=== PATIENT | female | born 1990 | race Caucasian/White ===

== ENCOUNTER 2024-12-10 20:21 | Emergency (ER) | payer MEDICAID, SELFPAY ==
[2024-12-10 20:21] VITALS: BMI 33.3
--- NOTE | 2024-12-10 20:28 | PD.EDCHEST ---
ED Chest Pain RME/HPI General Chief Complaint: Chest Pain Stated Complaint: FEVER, CHEST PAIN Time Seen by Provider: 12/10/24 20:25 Arrival date/time: 12/10/24 20:21 RME / HPI RME / HPI narrative: This section includes all my notes and documentations, including HPI, PE, and ED course. Timmy Taylor MD HPI: 34yo female here with several days of worsening cough, productive cough, purulent sputum, and dyspnea. With subjective fever and chills and bodyaches and malaise. And chest pain with coughing. No other complaints. ROS: All negative except as documented in HPI. Physical Exam: General: Alert and oriented. Hacking cough noted. Eyes: Conjunctivae and lids clear. ENT: No nasal congestion. Pharynx normal. TM normal bilaterally. Neck: Supple. Heart: RRR. Lungs: No respiratory distress. Decreased air movement. Diffuse rhonchi. Abdomen: Soft and nontender. Legs: No clubbing, cyanosis, edema. Skin: Warm and dry. Neuro: Alert and oriented X 3. I reviewed all diagnostic test results. My interpretation of the chest x-ray is no acute findings, official radiology reading is pending. COVID-negative. Positive influenza. At this point, diagnoses include Influenza. Treatment here included Tamiflu, Tylenol with Codeine, Duoneb, Ibuprofen, and Prednisone. Significant improvement noted. Recommended trial of outpatient treatment. Based on my best medical judgment, made decision no further evaluation or treatment indicated at this time. Patient understands and agrees to the discharge instructions customized and printed, see below. Discharge instructions from Dr. Taylor: --No physical exertion for 3 days to help rest your lungs. --No smoking and no exposure to smoking or pets or dust or cold air. --Tamiflu to kill the influenza germs. --Prednisone to help decrease inflammation of the lungs. --Ibuprofen 800 mg every 8 hours today and tomorrow. Then as needed for fever or pain. --Tylenol with codeine for severe cough or pain. --Benadryl as needed for cough or congestion. --Albuterol 2 puffs every 4-6 hours for 3 days scheduled. Then as needed (and in between) for cough or shortness or breath. ?Increase oral fluid. We need extra fluid when we are sick. --See a private doctor next week if not better. --Seek immediate medical care with significant worsening or with any concerns. Timmy Taylor MD Related Data Previous Rx's ?Medication ?Instructions ?Recorded albuterol sulfate 90 mcg/actuation 2 puff inhalation Q6H PRN 07/16/21 aerosol inhaler shortness of breath or wheezing #18 grams oxycodone-acetaminophen 5 mg-325 1 tab PO Q6H PRN pain #10 tabs 03/09/22 mg tablet (Percocet) bacitracin 500 unit/gram topical 1 applic topical TID 7 days #28.4 04/04/22 ointment grams ibuprofen 800 mg tablet 800 mg PO TID PRN pain #30 tabs 04/04/22 hydrocodone 5 mg-acetaminophen 325 1 tab PO TID #15 tabs 11/18/22 mg tablet cephalexin 500 mg capsule 500 mg PO QID #28 caps 06/14/23 acetaminophen 300 mg-codeine 30 mg 2 tab PO TID PRN pain #20 tabs 12/10/24 tablet albuterol sulfate 90 mcg/actuation 2 inh inhalation QID PRN shortness 12/10/24 aerosol inhaler of breath or wheezing #8.5 grams ibuprofen 800 mg tablet 800 mg PO Q8H PRN pain #30 tabs 12/10/24 oseltamivir 75 mg capsule (Tamiflu) 75 mg PO BID 5 days #10 caps 12/10/24 prednisone 50 mg tablet 50 mg PO QDAY #5 tabs 12/10/24 Allergies Allergy/AdvReac Type Severity Reaction Status Date / Time lactose AdvReac Severe NAUSEA Verified 03/09/22 10:06 Review of Systems Review of Systems Systems Reviewed: All systems reviewed, normal except as documented Past Medical History Past Medical History NEUROLOGIC: Negative Seizures CARDIAC: Positive Cardiac Disorders and Hypertension; Negative Congestive Heart Failure RESPIRATORY: Positive Asthma; Negative Chronic Obstructive Pulmonary Disease (COPD) GENITOURINARY: Negative Renal Disease ENDOCRINE: Negative Diabetes Mellitus Type 1 or Diabetes Mellitus Type 2 HEMATOLOGIC: Negative Sickle Cell Disease PSYCHO/SOCIAL: Positive Recreational Drug Use, Depression and Anxiety OTHER HISTORY: Negative Blood Transfusions, Blood Transfusion Reaction or Anesthesia Reactions Family History FAMILY HISTORY: Positive Family Cardiac Disorders and Family Cancer Surgical History SURGICAL: Positive Section Social History SMOKING STATUS: Current every day smoker ED Exam Narrative Physical exam: As noted in HPI. Course Course Course Narrative: CXR is ordered for determining the etiology of cough. Quality Measures none Orders Category Date Time Status Bedside COVID-19 Antigen Test NOW Care 12/10/24 20:29 Active Bedside Influenza A&B Antigen Test NOW Care 12/10/24 20:29 Completed XR chest 1V portable Stat Exams 12/10/24 20:30 Taken ACETAMINOPHEN w/COD 300-30 [Tylenol w/Cod #3] Med 12/10/24 20:28 Discontinued 2 tab PO X1 ONE Albuterol/Ipratr Rt Sayra [Duoneb Rt Sayra] Med 12/10/24 20:28 Discontinued 3 ml INH X1 ONE Ibuprofen Tab [Motrin Tab] Med 12/10/24 20:28 Discontinued 800 mg PO X1 ONE Oseltamivir [Tamiflu] Med 12/10/24 21:17 Discontinued 75 mg PO X1 ONE predniSONE Med 12/10/24 20:28 Discontinued 80 mg PO X1 ONE Vital Signs Vital signs: Vital Signs Temperature 103.1 F H 12/10/24 21:01 Pulse Rate 116 H 12/10/24 21:01 Respiratory Rate 20 12/10/24 21:01 Blood Pressure 147/83 H 12/10/24 21:01 Pulse Oximetry (%) 100 12/10/24 21:01 Oxygen Delivery Method Room Air 12/10/24 21:01 Chest Pain MDM Narrative MDM Narrative:: Scribe Attestation: 12/10/24 Donna Rider am scribing for and in the presence of Dr. Taylor. Patient data External records reviewed:: [facility] previous records (Per chart review, patient was seen here on 06/14/23 for amphetamine abuse.) Clinical information provided by:: patient Social determinants that could affect healthcare access:: none Patient has the following chronic illnesses:: HTN How is presenting disease/condition affected by chronic disease/condition?: uneffected by Evaluation data The following diagnostics were reviewed and interpreted by me:: lab results and radiology exam(s) Lab and/or radiology exams considered but not ordered:: none Interpretation Summary: Influenza B Medications / Prescriptions Medications or Prescriptions considered but not ordered:: none Medication administrations:: Medication Administration History Discontinued Medications Acetaminophen/Codeine Phosphate (Acetaminophen W/Cod 300-30 Tablet) 2 tab PO X1 ONE Stop: 12/10/24 20:29 Last Admin: 12/10/24 21:12 Dose: 2 tab Documented By: Albuterol/Ipratropium (Albuterol/Ipratropium (Duoneb) Rt Sayra 3 Ml Nebu) 3 ml INH X1 ONE Stop: 12/10/24 20:29 Last Admin: 12/10/24 20:59 Dose: 3 ml Documented By: MM Ibuprofen (Ibuprofen Tab 400 Mg Tablet) 800 mg PO X1 ONE Stop: 12/10/24 20:29 Last Admin: 12/10/24 21:13 Dose: 800 mg Documented By: Oseltamivir Phosphate (Oseltamivir 75 Mg Capsule) 75 mg PO X1 ONE Stop: 12/10/24 21:18 Prednisone (Prednisone 20 Mg Tablet) 80 mg PO X1 ONE Stop: 12/10/24 20:29 Last Admin: 12/10/24 21:10 Dose: 80 mg Documented By: Tylenol with Codeine, Duoneb, Ibuprofen, Prednisone, Tamiflu Consultations Consultation(s) initiated? (list below): No Diagnosis Chest Pain Differential Diagnosis: pneumothorax and other (COVID/influenza/pneumonia/bronchitis) Most likely diagnosis given after review of the tests above:: Influenza Admission Indicated Admission indicated?: not indicated Explain why admission is indicated or not indicated:: No criteria for admission. Admission Request Was there a request for admission?: No Disposition Plan Disposition Plan: Discharge Discharge Attestation Discharge Attestation: The patient and all family members were given an opportunity to ask questions and understood the discharge instructions. Discharge instructions specifically effects, indications for sooner follow up or return to the emergency department, and the expected course of current diagnosis. Patient condition: Stable Discharge Plan Plan Patient Disposition: HOME (Self Care) Prescriptions/Referrals Prescriptions/Med Rec: New ibuprofen 800 mg tablet 800 mg PO Q8H PRN (Reason: pain) Qty: 30 0RF acetaminophen-codeine 300-30 mg tablet 2 tab PO TID MDD 6 PRN (Reason: pain) Qty: 20 0RF oseltamivir [Tamiflu] 75 mg capsule 75 mg PO BID 5 Days Qty: 10 0RF prednisone 50 mg tablet 50 mg PO QDAY Qty: 5 0RF albuterol sulfate 90 mcg/actuation HFA aerosol inhaler 2 inh inhalation QID PRN (Reason: shortness of breath or wheezing) Qty: 8.5 0RF No Action ibuprofen 800 mg tablet 800 mg PO TID PRN (Reason: pain) Qty: 30 0RF bacitracin 500 unit/gram ointment 1 applic topical TID 7 Days Qty: 28.4 1RF albuterol sulfate 90 mcg/actuation HFA aerosol inhaler 2 puff inhalation Q6H PRN (Reason: shortness of breath or wheezing) Qty: 18 0RF oxycodone-acetaminophen [Percocet] 5-325 mg tablet 1 tab PO Q6H MDD 6 tabs PRN (Reason: pain) Qty: 10 0RF hydrocodone-acetaminophen 5-325 mg tablet 1 tab PO TID MDD 3 Qty: 15 0RF cephalexin 500 mg capsule 500 mg PO QID Qty: 28 0RF Problem List Clinical Impression: Influenza Patient/Caregiver Discharge Instructions Discharge Activity: activity as tolerated Education Materials: ED Influenza (Adult) Additional Instructions: Discharge instructions from Dr. Taylor: --No physical exertion for 3 days to help rest your lungs. --No smoking and no exposure to smoking or pets or dust or cold air. --Tamiflu to kill the influenza germs. --Prednisone to help decrease inflammation of the lungs. --Ibuprofen 800 mg every 8 hours today and tomorrow.? Then as needed for fever or pain. --Tylenol with codeine for severe cough or pain.? --Benadryl as needed for cough or congestion.? --Albuterol 2 puffs every 4-6 hours for 3 days scheduled.? Then as needed (and in between) for cough or shortness or breath.?? ?Increase oral fluid.? We need extra fluid when we are sick.?? --See a private doctor next week if not better. --Seek immediate medical care with significant worsening or with any concerns. Print Language: Bangladeshi Stand Alone Forms: Heather Award Info., Patient Portal Info Letter
--- NOTE | 2024-12-10 20:30 | XR_ITS ---
Examination: AP upright chest single view Technique: Portable AP upright chest single view December 10, [id number] hrs. Indications: Shortness of breath today. Findings: Opacity in the right middle lobe and left base consistent with pneumonia Normal heart size Osseous structures intact Impression: Pneumonia as above
[2024-12-10] MEDS: ALBUTEROL/IPRATROPIUM (Duoneb) RT SOL 3 ML NEBU INH (20:59)
[2024-12-10 21:01] VITALS: BP 147/83; PULSE 106; PULSE 116; RESP 20; TEMP 39.5; O2SAT 100; O2SAT 94
[2024-12-10] MEDS: predniSONE 20 MG TABLET 80 MG PO (21:10)
[2024-12-10] MEDS: ACETAMINOPHEN w/COD 300-30 TABLET 2 TAB PO (21:12)
[2024-12-10 21:13] VITALS: TEMP 39.6
[2024-12-10] MEDS: IBUPROFEN TAB 400 MG TABLET 800 MG PO (21:13)
[2024-12-10] MEDS: OSELTAMIVIR 75 MG CAPSULE PO (21:31)
== END 2024-12-10 22:20 | disposition home or self-care (01) ==
LOC: SERX 21:57
PROVIDERS: Emergency Provider Emergency Medicine; PCP Family Medicine
DX: J10.1 Influenza due to other identified influenza virus with other respiratory manifestations (principal); F17.210 Nicotine dependence, cigarettes, uncomplicated
CPT/HCPCS: 71045; 87400; 87811; 94640; 99283; A9270; J7512

== ENCOUNTER 2025-08-21 03:45 | Emergency (ER) | payer MEDICAID, SELFPAY ==
[2025-08-21 03:46] VITALS: BMI 29.9
[2025-08-21 03:53] VITALS: BP 133/83; PULSE 91; RESP 19; TEMP 36.4; O2SAT 100
--- NOTE | 2025-08-21 03:59 | PD.EDRME ---
Rapid Medical Screening Exam RME Arrival date/time: 08/21/25 03:45 This is a case of 35-year-old female who came into the emergency room due to generalized abdominal pain with nausea and vomiting for 3 days persistence of the symptoms this patient decided to start consult here in the emergency room Chief Complaint: Nausea/Vomiting/Diarrhea Time Seen by Provider: 08/21/25 03:58 Vital signs: Vital Signs Temperature 97.6 F 08/21/25 03:53 Pulse Rate 91 08/21/25 03:53 Respiratory Rate 19 08/21/25 03:53 Blood Pressure 133/83 H 08/21/25 03:53 Pulse Oximetry (%) 100 08/21/25 03:53 Oxygen Delivery Method Room Air 08/21/25 03:53 Exam: Abdominal exam mild to moderate tenderness on the both upper abdomen no guarding no rebound no rigidity Clinical Impression: Abdominal pain
--- NOTE | 2025-08-21 04:06 | XR_ITS ---
Examination: CT abdomen and pelvis without contrast. Coronal 3-D reconstructions. Sagittal 2-D reconstructions. Date and time of exam: August 21, 2025, 0520 hours INDICATIONS: Abdominal pain beginning 2 weeks ago CTDI: vol (mGy): 8.32 DLP: (mGycm): 447 Technique: Axial images of the abdomen have been obtained, 3 mm slice thickness Intravenous contrast material has not been administered. Low dose protocols were performed. One or more of the following dose reduction techniques were used; automated exposure control, adjustment of the mA and/or KV according to patient size, use of iterative reconstruction technique. Findings: Hepatomegaly 17 cm splenomegaly 13 cm Absent gallbladder 10 mm right adrenal adenoma 3 mm left renal calculus 3 cm left renal cyst with thin calcification of the wall of the cyst, smaller right renal cyst Fluid distended small bowel and colonic loops Normal appendix No bowel obstruction Urinary bladder intact Osseous structures intact IMPRESSION: Hepatosplenomegaly Mild colitis enteritis Normal appendix
[2025-08-21 05:36] LABS: Basophils # (Auto) 0.1 Thou/mm3 (0.0-0.2); Basophils % (Auto) 1 % (0-2.5); Eosinophils # (Auto) 0.1 Thou/mm3 (0.0-0.5); Eosinophils % (Auto) 1 % (0-10); Hematocrit 46.0 % (36.0-46.0); Hemoglobin 15.2 g/dL (12.0-16.0); Immature Granulocytes Auto 0.02 Thou/mm3 (0.00-0.00); Lymphocytes # (Auto) 1.1 Thou/mm3 (1.0-4.8); Lymphocytes % (Auto) 10 % (10-50); Mean Corpuscular HGB Conc 33.0 g/dl (31.0-37.0); Mean Corpuscular Hemoglobin 30.0 pg (25.0-35.0); Mean Corpuscular Volume 91 fL (80-100); Monocytes # (Auto) 0.5 Thou/mm3 (0.0-0.8); Monocytes % (Auto) 5 % (0-12); Neutrophils # (Auto) 9.1 Thou/mm3 (1.8-7.7); Neutrophils % (Auto) 83 % (37-80); Nucleated Red Blood Cell # 0.00 Thou/mm3 (0.00-0.00); Nucleated Red Blood Cell % 0 /100 WBC (0); Platelet Count 265 Thou/mm3 (140-440); RDW Standard Deviation 41.9 fL (36.4-46.3); Red Blood Count 5.07 Miln/mm3 (4.00-5.20); White Blood Count 10.9 Thou/mm3 (3.6-11.0)
[2025-08-21 05:46] VITALS: BP 125/76; PULSE 64; RESP 12; TEMP 36.5; O2SAT 97
[2025-08-21 05:57] LABS: Alanine Aminotransferase 283 U/L (10-49); Albumin, Serum 5.2 gm/dL (3.5-5.0); Albumin/Globulin Ratio 2.3 (1.2-2.2); Alkaline Phosphatase 119 U/L (46-116); Anion Gap 10 (7-16); Aspartate Amino Transferase 384 U/L (0-34); BUN/Creatinine Ratio 18 Ratio (12-20); Bilirubin,Total 1.1 mg/dL (0.3-1.2); Blood Urea Nitrogen 14 mg/dL (9-23); Calcium 9.1 mg/dL (8.3-10.6); Calcium (Corrected) 9.1 mg/dL (8.5-10.1); Carbon Dioxide 27.5 mMol/L (20.0-31.0); Chloride 105 mMol/L (98-107); Creatinine (Component) 0.8 mg/dL (0.6-1.3); Estimated Creatinine Clearance 101.6 mL/min (>60); Globulin 2.3 gm/dL (2.3-3.5); Glucose 109 mg/dL (74-106); Lipase 36 U/L (12-53); Osmolality,Calculated 284 (275-295); Potassium 4.0 mMol/L (3.4-5.1); Sodium 142 mMol/L (136-145); Total Protein 7.5 gm/dL (5.7-8.2); eGFR > 60 See Note
--- NOTE | 2025-08-21 06:03 | PRELIM_ITS ---
CT scan of the abdomen and pelvis without intravenous contrast (axial sections with sagittal and coronal reformats) August 21, 2025 at 0527 hours Clinical History: Abdominal pain. Comparison: June 14, 2023 Findings: Bibasilar streaky atelectasis is present. Fatty infiltration of the liver is noted. The gallbladder is surgically absent. There is a 1.3 cm right adrenal adenoma. There are few renal cysts, the largest in the left kidney measuring 3 cm with fine calcification. The pancreas, spleen, right kidney are unremarkable on this noncontrast study. No evidence of bowel obstruction. The appendix is within normal limits (coronal images 67-84). Fluid-filled small and large bowel loops with air-fluid levels are seen in the colon. There are a few prominent mesenteric lymph nodes. The urinary bladder is unremarkable. The uterus and adnexa are unremarkable. There is no free fluid or free air. The osseous structures are unremarkable. Impression: Fluid-filled small and large bowel loops with air-fluid levels in the colon, in the appropriate clinical setting the possibility of enterocolitis cannot be excluded. Other findings as described above. Report Electronically Signed By: Jerry Dewey 08/21/2025 6:02:41 AM [EST]
--- NOTE | 2025-08-21 06:20 | EDNOTE_ITS ---
ED Abdominal Pain RME/HPI General Chief Complaint: Nausea/Vomiting/Diarrhea Stated complaint: VOMITING, BODY ACHES, DIZZINESS Time seen by provider: 08/21/25 03:58 Arrival date/time: 08/21/25 03:45 RME / HPI RME / HPI narrative: 08/21/25 03:45 This is a case of 35-year-old female who came into the emergency room due to generalized abdominal pain with nausea and vomiting for 3 days persistence of the symptoms this patient decided to start consult here in the emergency room DR. MACKENZIE MAIN ED EVALUATION: 35-year-old female presents to the Emergency Department for nausea and vomiting that began earlier today. She denies abdominal pain, diarrhea, fever, or chills. No known past medical history and no regular medications. No recent travel or sick contacts reported. Related Data Previous Rx's ?Medication ?Instructions ?Recorded albuterol sulfate 90 mcg/actuation 2 puff inhalation Q 6H PRN 07/16/21 aerosol inhaler shortness of breath or wheez ing #18 grams oxycodone-acetaminophen 5 mg-325 1 tab PO Q6H PRN pain #10 tabs 03/09/22 mg tablet (Percocet) bacitracin 500 unit/gram topical 1 applic topical TID 7 days #28.4 04/04/22 ointment grams ibuprofen 800 mg tablet 800 mg PO TID PRN pain #30 t abs 04/04/22 hydrocodone 5 mg-acetaminophen 325 1 tab PO TID #15 ta bs 11/18/22 mg tablet cephalexin 500 mg capsule 500 mg PO QID #28 caps 06/14 acetaminophen 300 mg-codeine 30 mg 2 tab PO TID PRN pa in #20 tabs 12/10/24 tablet albuterol sulfate 90 mcg/actuation 2 inh inhalation QI D PRN shortness 12/10/24 aerosol inhaler of breath or wheezing #8.5 g carmen ibuprofen 800 mg tablet 800 mg PO Q8H PRN pain #30 t abs 12/10/24 prednisone 50 mg tablet 50 mg PO QDAY #5 tabs Allergies Allergy/AdvReac Type Severity Reaction Status Date / Time lactose AdvReac Severe NAUSEA Verified 08/21/25 03:50 Review of Systems Review of Systems Systems Reviewed: All systems reviewed, normal except as documented Past Medical History Past Medical History CARDIAC: Positive Cardiac Disorders and Hypertension RESPIRATORY: Positive Asthma PSYCHO/SOCIAL: Positive Recreational Drug Use, Depression and Anxiety Family History FAMILY HISTORY: Positive Family Cardiac Disorders and Family Cancer Surgical History SURGICAL: Positive Section Social History SMOKING STATUS: Current every day smoker SUBSTANCE USE: does not use ALCOHOL: Never ED Exam Narrative Physical exam: GENERAL APPEARANCE: Alert and oriented x4, agitated and mildly diaphoretic, appears uncomfortable VITALS: All vitals were reviewed and the pulse ox is 95% on room air, which is normal according to my interpretation. HEENT: Normocephalic, atraumatic; pupils equal, round, reactive to light; EOMI; mucous membranes pink, moist; oropharynx clear NECK: Supple LUNGS: CTABL; no wheezes, no rales, no rhonchi HEART: Regular rate, regular rhythm; normal S1, S2; no murmurs ABDOMEN: non distended; normal BS; soft, no tenderness, no guarding, no rebound; no masses, no organomegaly, no hernia BACK: no CVA tenderness EXTREMITIES: atraumatic; no edema NEUROLOGIC: awake; alert and oriented x4; cranial nerves II-XII grossly intact; no focal sensory or motor deficits PSYCHIATRIC: Agitated affect; cooperative but restless SKIN: Mildly diaphoretic, warm, normal color; no rash Course Quality Measures none Orders Category Date Time Status Bedside COVID-19 Antigen Test NOW Care 08/21/25 09:[address] abdomen pelvis wo con Stat Exams 08/21/25 04:06 Completed US abdomen limited Stat Exams 08/21/25 06:33 Completed Alcohol, Blood Medical Stat Lab 08/21/25 04:33 Completed CBC Stat Lab 08/21/25 04:33 Completed Comprehensive Metabolic Panel Stat Lab 08/21/25 04:33 Completed Drug Screen,Urine Stat Lab 08/21/25 11:13 Completed HCG Qualitative,Urine Stat Lab 08/21/25 11:10 Completed Influenza A & B Rapid Panel Stat Lab 08/21/25 11:13 Completed Lipase Stat Lab 08/21/25 04:33 Completed Urinalysis Stat Lab 08/21/25 11:10 Completed Urine Culture Stat Lab 08/21/25 12:39 Ordered Ondansetron Inj [Zofran Inj] Med 08/21/25 08:34 Discontinued 4 mg IVP X1 ONE Sodium Chloride 0.9% 1000 ml [Ns] 1,000 ml Med 08/21/25 08:34 Discontinued IV 999 mls/hr Vital Signs Vital signs: Vital Signs Temperature 97.6 F 08/21/25 03:53 Pulse Rate 91 08/21/25 03:53 Respiratory Rate 19 08/21/25 03:53 Blood Pressure 133/83 H 08/21/25 03:53 Pulse Oximetry (%) 100 08/21/25 03:53 Oxygen Delivery Method Room Air 08/21/25 03:53 Abdominal Pain MDM MDM Narrative [facility] Narrative:: IJackie am scribing for and in the presence of Dr. Mackenzie. Patient data External records reviewed:: [facility] previous records Clinical information provided by:: patient Social determinants that could affect healthcare access:: other (specify) (current smoker) Patient has the following chronic illnesses:: Denies any PMHx or surgeries. How is presenting disease/condition affected by chronic disease/condition?: no chronic disease Evaluation data The following diagnostics were reviewed and interpreted by me:: lab results and radiology exam(s) Lab and/or radiology exams considered but not ordered:: none Interpretation Summary: Procedure(s): US abdomen limited Accession Number(s): [id number] cc: Asim Sheppard MD; Yvon Ugarte MD; Dominga Mackenzie MD~ Examination: Abdomen sonogram, Limited Date and time of exam: August 21, 2025, 0719 hours INDICATIONS: Elevated liver function test on laboratory examination today. Technique: Real-time steel scale transabdominal sonographic images of the upper abdomen obtained. Findings: Absent gallbladder. Normal common bile duct 0.5 cm. Pancreatic head 2.6 cm. Mild hepatomegaly 16.6 cm fatty infiltration. Normal hepatopetal portal venous flow. Patent IVC. IMPRESSION: Mild hepatomegaly with fatty infiltration Dictated By: Yvon Ugarte MD Procedure(s): CT abdomen pelvis wo con Accession Number(s): [id number] cc: Asim Sheppard MD; Yvon Ugarte MD; Tiffany Myrick~ Examination: CT abdomen and pelvis without contrast. Coronal 3-D reconstructions. Sagittal 2-D reconstructions. Date and time of exam: August 21, 2025, 0520 hours INDICATIONS: Abdominal pain beginning 2 weeks ago CTDI: vol (mGy): 8.32 DLP: (mGycm): 447 Technique: Axial images of the abdomen have been obtained, 3 mm slice thickness Intravenous contrast material has not been administered. Low dose protocols were performed. One or more of the following dose reduction techniques were used; automated exposure control, adjustment of the mA and/or KV according to patient size, use of iterative reconstruction technique. Findings: Hepatomegaly 17 cm splenomegaly 13 cm Absent gallbladder 10 mm right adrenal adenoma 3 mm left renal calculus 3 cm left renal cyst with thin calcification of the wall of the cyst, smaller right renal cyst Fluid distended small bowel and colonic loops Normal appendix No bowel obstruction Urinary bladder intact Osseous structures intact IMPRESSION: Hepatosplenomegaly Mild colitis enteritis Normal appendix Dictated By: Yvon Ugarte MD Medications / Prescriptions Medications or Prescriptions considered but not ordered:: none Medication administrations:: Medication Administration History Discontinued Medications Sodium Chloride (Ns) 1,000 mls @ 999 mls/hr IV .Q1H1M ONE Stop: 08/21/25 09:34 Last Infusion: 08/21/25 09:45 Dose: Infused Documented By: Admin: 08/21/25 08:44 Dose: 999 mls/hr Documented By: NAKIA Ondansetron HCl (Ondansetron Inj 2 Mg/Ml Inj 2 Ml) 4 mg IVP X1 ONE; Protocol Stop: 08/21/25 08:35 Last Admin: 08/21/25 08:47 Dose: 4 mg Documented By: NAKIA see above Consultations Consultation(s) initiated? (list below): No Diagnosis Differential diagnosis abdominal pain: other (Gastroenteritis, dehydration, and metabolic disturbance.) Most likely diagnosis given after review of the tests above:: Enteritis Vomiting Methamphetamine abuse Bacteriuria Admission Indicated Admission indicated?: not indicated Admission Request Was there a request for admission?: No Disposition Plan Disposition Plan: Discharge Discharge Attestation Discharge Attestation: The patient and all family members were given an opportunity to ask questions and understood the discharge instructions. Discharge instructions specifically effects, indications for sooner follow up or return to the emergency department, and the expected course of current diagnosis. Patient condition: Stable Discharge Plan Plan Patient Disposition: HOME (Self Care) Prescriptions/Referrals Prescriptions/Med Rec: No Action ibuprofen 800 mg tablet 800 mg PO TID PRN (Reason: pain) Qty: 30 0RF bacitracin 500 unit/gram ointment 1 applic topical TID 7 Days Qty: 28.4 1RF albuterol sulfate 90 mcg/actuation HFA aerosol inhaler 2 puff inhalation Q6H PRN (Reason: shortness of breath or wheezing) Qty: 18 0RF oxycodone-acetaminophen [Percocet] 5-325 mg tablet 1 tab PO Q6H MDD 6 tabs PRN (Reason: pain) Qty: 10 0RF hydrocodone-acetaminophen 5-325 mg tablet 1 tab PO TID MDD 3 Qty: 15 0RF ibuprofen 800 mg tablet 800 mg PO Q8H PRN (Reason: pain) Qty: 30 0RF acetaminophen-codeine 300-30 mg tablet 2 tab PO TID MDD 6 PRN (Reason: pain) Qty: 20 0RF prednisone 50 mg tablet 50 mg PO QDAY Qty: 5 0RF albuterol sulfate 90 mcg/actuation HFA aerosol inhaler 2 inh inhalation QID PRN (Reason: shortness of breath or wheezing) Qty: 8.5 0RF cephalexin 500 mg capsule 500 mg PO QID Qty: 28 0RF Referrals: Asim Sheppard MD [Primary Care Provider, Family Practice] - In 1 week Problem List Clinical Impression: Enteritis, Vomiting, Methamphetamine abuse, Bacteriuria Patient/Caregiver Discharge Instructions Education Materials: Understanding Methamphetamine ..., ED Gastroenteritis, Noninfectious Print Language: [place] Stand Alone Forms: Heather Award Info., Patient Portal Info Letter
--- NOTE | 2025-08-21 06:33 | XR_ITS ---
Examination: Abdomen sonogram, Limited Date and time of exam: August 21, 2025, 0719 hours INDICATIONS: Elevated liver function test on laboratory examination today. Technique: Real-time steel scale transabdominal sonographic images of the upper abdomen obtained. Findings: Absent gallbladder. Normal common bile duct 0.5 cm. Pancreatic head 2.6 cm. Mild hepatomegaly 16.6 cm fatty infiltration. Normal hepatopetal portal venous flow. Patent IVC. IMPRESSION: Mild hepatomegaly with fatty infiltration
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
[2025-08-21 08:00] VITALS: BP 123/80; PULSE 73; RESP 16; TEMP 36.6; O2SAT 98
[2025-08-21 08:05] LABS: Alcohol, Blood Medical < 3.0 mg/dL (0-10.0)
[2025-08-21] MEDS: SODIUM CHLORIDE 0.9% 1000 ML 1,000 ML 999 ML IV (08:44)
[2025-08-21] MEDS: ONDANSETRON INJ 2 MG/ML INJ 2 ML 4 MG IVP (08:47)
[2025-08-21 11:26] VITALS: BP 115/68; PULSE 72; RESP 16; TEMP 36.9; O2SAT 95
[2025-08-21 11:35] LABS: Collection Type, Urine Clean Catch
[2025-08-21 11:48] LABS: HCG Qualitative,Urine Negative
[2025-08-21 11:55] LABS: Bacteria,Urine 4+; Bilirubin,Urine Negative (Negative); Blood,Urine Trace (Negative); Color,Urine Yellow (Lt Yel-Yel); Glucose, Urine Negative (Negative); Ketones,Urine Negative (Negative); Leukocyte Esterase,Urine Negative (Negative); Nitrite,Urine Positive (Negative); PH,Urine 6.0 (5.0-7.0); Protein,Urine Trace (Neg - Trace); RBC,Urine 2 /hpf (0-3); Specific Gravity,Urine 1.032 (1.001-1.035); Squamous Epithelial Cell,Urine 1 /hpf (0-5); Urobilinogen,Urine Negative mg/dL (0.0-1.0); WBC,Urine 1 /hpf (0-5)
[2025-08-21 11:56] LABS: Clarity,Urine Hazy (Clear/Hazy)
[2025-08-21 12:14] LABS: Amphetamine/Methamp Scrn,U Positive (Negative); Barbiturate Screen,Urine Negative (Negative); Benzodiazepines Screen,Urine Negative (Negative); Benzoylecgonine Screen, Ur Negative (Negative); Fentanyl Screen,Urine Negative (Negative); Opiate Screen,Urine Negative (Negative); THC Screen,Urine Positive (Negative)
[2025-08-21 12:29] LABS: Influenza A Ag Negative; Influenza B Ag Negative
--- NOTE | 2025-08-21 12:38 | PC.NURSE ---
sandwich and juice given for PO trial.
--- NOTE | 2025-08-21 12:55 | PC.NURSE ---
pt tolerated PO trial well.
[2025-08-21 12:56] VITALS: BP 120/65; PULSE 70; RESP 18; TEMP 36.8; O2SAT 96
== END 2025-08-21 12:56 | disposition home or self-care (01) ==
PROVIDERS: Nurse Practitioner Family; Emergency Provider Emergency Medicine; PCP Family Medicine
DX: K52.9 Noninfective gastroenteritis and colitis, unspecified (principal); F15.10 Other stimulant abuse, uncomplicated; R82.71 Bacteriuria
CPT/HCPCS: 36415; 74176; 76705; 80053; 80307; 80320; 81001; 81025; 83690; 85025; 87086; 87502; 87811; 99283; J2405; J7030; G0480

== ENCOUNTER 2025-10-21 12:36 | Emergency (ER) | payer MEDICAID, SELFPAY ==
[2025-10-21 12:37] VITALS: BMI 29.9
--- NOTE | 2025-10-21 13:18 | PC.NURSE ---
Pt did not answer and was not found outside.
== END 2025-10-21 15:55 | disposition left against medical advice (07) ==
PROVIDERS: Emergency Provider Emergency Medicine
DX: Z53.21 Procedure and treatment not carried out due to patient leaving prior to being seen by health care provider (principal)
CPT/HCPCS: 99281